=== PATIENT | female | born 1990 | race Caucasian/White ===

== ENCOUNTER 2022-02-10 14:14 | Emergency (ER) | payer OTHER ==
[~2022-02-10] VITALS: Ht 154.9 cm; Wt 85.3 kg
[2022-02-10 14:23] VITALS: BP_SYST 151
--- NOTE | 2022-02-10 14:30 | NUR ---
[facility]. pt was at work and had sudden onset headache. pt has no hx, meds or [facility] triage comleted md to see.
[2022-02-10] MEDS ORDERED: MORPHINE 4 MG INJ. 4 MG/ML VIAL IVP ONE (15:00)
--- NOTE | 2022-02-10 15:16 | NUR ---
piv placed blood to lab pt to ct scan
[2022-02-10] MEDS ORDERED: KETOROLAC TROMETHAMINE 30 MG VIAL IVP ONE (16:15)
[2022-02-10 16:21] VITALS: BP_SYST 110
--- NOTE | 2022-02-10 16:23 | NUR ---
Patient given written and verbal discharge instructions and verbalizes understanding. YURI elizalde MD discussed with patient the results and treatment provided. Patient in stable condition. ID arm band removed. IV catheter removed intact and dressing applied, no active bleeding. Patient educated on pain management and to follow up with PMD. Pain Scale 0. Opportunity for questions provided and answered. Medication side effect fact sheet provided.
== END 2022-02-10 16:21 | disposition home or self-care (01) ==
LOC: SED 14:14
DX: R51.9 Headache, unspecified (principal)
CPT/HCPCS: 70450; 76376; 81025; 96374; 96375; 99284; J1885; J2270